=== PATIENT | male | born 1960 | race African-American/Black ===

== ENCOUNTER 2016-11-08 12:04 | Emergency (ER) | payer OTHER ==
[~2016-11-08] VITALS: Ht 195.6 cm; Wt 111.1 kg
[2016-11-08 12:29] VITALS: BP 160/76
[2016-11-08] MEDS ORDERED: CEPHALEXIN MONOHYDRATE 500 MG CAPSULE PO ONE ×2 (13:00→13:21)
[2016-11-08] MEDS ORDERED: SULFAMETH/TRIMETH 800/160 MG 1 UDTAB TABLET PO ONE ×2 (13:00→13:21)
[2016-11-08] MEDS ORDERED: TDAP [DIPH/PERTUSSIS/TET] 0.5 ML VIAL IM ONE ×2 (13:00→13:22)
[2016-11-08] MEDS ORDERED: CLINDAMYCIN 900 MG in IV D5W 100 ML IM ONE (13:00)
== END 2016-11-08 15:41 | disposition home or self-care (01) ==
LOC: ER 12:11
DX: L02.512 Cutaneous abscess of left hand (principal); M06.9 Rheumatoid arthritis, unspecified; M79.89 Other specified soft tissue disorders; F17.200 Nicotine dependence, unspecified, uncomplicated
CPT/HCPCS: 73140; 90471; 90715; 99285; A4606; Z7610